=== PATIENT | male | born 1950 | race Caucasian/White ===

== ENCOUNTER 2018-11-15 12:03 | Emergency (ER) | payer OTHER ==
[2018-11-15] MEDS ORDERED: MECLIZINE HCL 12.5 MG TAB ONE (12:50)
[2018-11-15] MEDS ORDERED: ONDANSETRON 4 MG/2 ML VIAL ONE (12:50)
[2018-11-15] MEDS ORDERED: FAMOTIDINE 20 MG/2 ML VIAL IV ONE (12:51)
[2018-11-15] MEDS ORDERED: NA CHLORIDE 0.9% 500 ML ONE (12:51)
--- NOTE | 2018-11-15 12:56 | RAD REPORT ---
EXAM DESCRIPTION: CT - Head Brain Wo Cont - 11/15/2018 12:42 pm CLINICAL HISTORY: N/V;Dizziness Headache, dizziness, drowsiness. COMPARISON: No comparisons TECHNIQUE: All CT scans are performed using dose optimization technique as appropriate and may inclu de automated exposure control or mA/KV adjustment according to patient size. FINDINGS: No intracranial hemorrhage, hydrocephalus or extra-axial fluid collection.No areas of brai n edema or evidence of midline shift. Mild mucoperiosteal thickening involves the ethmoid air cells. The paranasal sinuses and mastoids oth erwise clear. The calvarium is intact. IMPRESSION: No acute intracranial abnormality.
--- NOTE | 2018-11-15 13:00 | RAD REPORT ---
EXAM DESCRIPTION: RAD - Chest Single View - 11/15/2018 12:51 pm CLINICAL HISTORY: dizziness Chest pain. COMPARISON: <Comparisons> FINDINGS: Portable technique limits examination quality. The lungs are grossly clear. The heart is normal in size. Healed left posterior rib fracture. IMPRESSION: No acute intrathoracic process suspected.
[2018-11-15 14:02] LABS: Absolute Lymphocytes (CBC) 0.6 K/uL (0.7-4.9); Absolute Monocytes 0.4 K/uL (0.1-1.3); Basophils % 0.5 % (0-1.3); Hematocrit 42.9 % (39.6-49.0); Lymphocytes % 7.8 % (15.3-44.8); MPV 9.8 fL (7.6-11.3); Monocytes % 4.9 % (3.3-12.3); RBC Red Blood Cell Count 4.28 M/uL (4.33-5.43)
[2018-11-15 14:41] LABS: Protime INR 1.02
[2018-11-15 14:56] LABS: Blood Morphology Comment NOT SEEN (NOT SEEN); Platelet Estimate ADEQ; Urine White Blood Cell Casts OK
[2018-11-15 15:19] LABS: Potassium 4.6 mmol/L (3.5-5.1); Sodium Level 140 mmol/L (136-145)
[2018-11-15 15:21] LABS: Glucose Level 116 mg/dL (74-106)
[2018-11-15 15:22] LABS: Albumin 3.7 g/dL (3.4-5.0); BUN Blood Urea Nitrogen 18 mg/dL (7-18); Bicarbonate 28 mmol/L (21-32); Magnesium 2.3 mg/dL (1.8-2.4)
[2018-11-15 15:24] LABS: Bilirubin Direct 0.2 mg/dL (0-0.2)
[2018-11-15 15:25] LABS: ALT/SGPT 24 U/L (12-78); AST/SGOT 17 U/L (15-37)
[2018-11-15 15:26] LABS: Bilirubin Total 0.8 mg/dL (0.2-1.0)
[2018-11-15 15:27] LABS: Alkaline Phosphatase 80 U/L (45-117)
[2018-11-15 15:30] LABS: NT PRO-BNP 181 pg/mL (<125); Troponin (Emerg Dept Use Only) < 0.02 ng/mL (0.0-0.045)
--- NOTE | 2018-11-15 18:13 | RAD REPORT ---
EXAM DESCRIPTION: MRI - Brain W/Wo Cont - 11/15/2018 6:01 pm CLINICAL HISTORY: dizziness Headache, drowsiness, CVA symptomology COMPARISON: MRA Head Wo Cont dated 11/15/2018 TECHNIQUE: Multi-sequence, multiplanar MR imaging of the brain was performed with contrast. FINDINGS: No intracranial hemorrhage, hydrocephalus, or extra-axial fluid collection.Minimal T2 and FLAIR hyperintensity in the periventricular region compatible with chronic microvascular ischemic sirena nges. No edema or shift of midline structures. No intracranial mass. DWI is negative for acute CVA. The midline structures are normally formed. Mild mucosal thickening involves the ethmoid air cells an d sphenoid sinuses. Post-contrast images show no abnormal enhancement to suggest tumor or infection. IMPRESSION: Negative for acute CVA or other acute intracranial process. No pathologic post-contrast enhancement suspected.
--- NOTE | 2018-11-15 18:15 | RAD REPORT ---
EXAM DESCRIPTION: MRI - MRA Head Wo Cont - 11/15/2018 6:01 pm CLINICAL HISTORY: DIZZINESS Headache, drowsiness, CVA symptomology. COMPARISON: <Comparisons> FINDINGS: 3D noncontrast [id number] MR angiography of the [place] was performed. No aneurysm, flow-limiting stenosis or vascular malformation is seen. Forward flow seen in codominant vertebral arteries. The visualized dural venous sinuses appear patent. IMPRESSION: No significant flow abnormality of the [place] is identified.
--- NOTE | 2018-11-15 18:19 | RAD REPORT ---
EXAM DESCRIPTION: MRI - MRA Neck W/Wo Cont - 11/15/2018 6:01 pm CLINICAL HISTORY: dizziness Headache, drowsiness, CVA symptomology. COMPARISON: No comparisons FINDINGS: Contrast enhance 2D [id number] MR angiography of the neck vessels was performed. A left aortic arch is noted. Normal branching of the great vessels is seen. Both common carotid arteries and subclavian artery superior widely patent. Mild irregular atheromatous narrowing noted involving both proximal internal carotid arteries. Stenos is of approximately 70% is suspected involving the left carotid bulb utilizing NASCET criteria. Steno sis of less than 50% is suspected involving the right carotid bulb utilizing NASCET criteria. Antegrade flow seen in codominant vertebral arteries. IMPRESSION: Approximately 70% stenosis suspected left carotid bulb based on NASCET criteria.
[2018-11-15] MEDS ORDERED: LISINOPRIL 20 MG TAB ONE (18:48)
[2018-11-15] MEDS ORDERED: ASPIRIN 81 MG CHEWABLE TABLET ONE (18:55)
--- NOTE | 2018-11-15 19:03 | ER ---
Nurse's Notes [facility] Name: Shane Rodriguez Age: 68 yrs Sex: Male : 1950 Arrival Date: 11/15/2018 Time: 12:07 Bed 20 Private MD: Diagnosis: Dizziness and giddiness;Non-occlussive left carotid stenosis Presentation: 11/15 12:07 Presenting complaint: EMS states: DIZZINESS WHILE SURFING. Transition of care: patient bp was not received from another setting of care. Onset of symptoms is unknown. Risk Assessment: Do you want to hurt yourself or someone else? Patient reports no desire to harm self or others. Initial Sepsis Screen: Does the patient meet any 2 criteria? No. Patient's initial sepsis screen is negative. Does the patient have a suspected source of infection? No. Patient's initial sepsis screen is negative. Care prior to arrival: None. 12:07 Method Of Arrival: EMS: [facility] bp 12:07 Acuity: MALA 3 bp Triage Assessment: 12:07 General: Appears in no apparent distress. comfortable, Behavior is calm, cooperative, bp appropriate for age. Pain: Denies pain. EENT: No deficits noted. Neuro: Level of Consciousness is awake, alert, obeys commands, Oriented to place. Cardiovascular: No deficits noted. Respiratory: Airway is patent Respiratory effort is even, unlabored, Respiratory pattern is symmetrical. GI: No signs and/or symptoms were reported involving the gastrointestinal system. : No signs and/or symptoms were reported regarding the genitourinary system. Derm: No deficits noted. Musculoskeletal: No deficits noted. Historical: - Allergies: 12:09 No Known Allergies; bp - Home Meds: 12:09 lisinopril 20 mg Oral tab 1 tab once daily [Active]; bp - PMHx: 12:09 Hypertension; bp - Immunization history:: Adult Immunizations up to date. - Social history:: Smoking status: Patient/guardian denies using tobacco. - Ebola Screening: : No symptoms or risks identified at this time. Screenin:16 Abuse screen: Denies threats or abuse. Denies injuries from another. Nutritional bp screening: No deficits noted. Tuberculosis screening: No symptoms or risk factors identified. Fall Risk None identified. Assessment: 12:07 General: SEE TRIAGE NOTE. bp 14:12 Reassessment: ALL CURRENT ORDERS COMPLETED, LAB RECOLLECT SENT. bp 15:37 Reassessment: ALL CURRENT ORDERS, RESULTS PENDING. bp 16:22 Reassessment: ALL CURRENT ORDERS COMPLETED, DISPO PENDING. bp 16:48 Reassessment: PT TO MRI. bp 17:52 Reassessment: PT RETURNED FROM MRI. bp 19:13 Reassessment: PT D/C HOME AMBULATORY WITH FAMILY, DX WITH DIZZINESS AND NON-OCCLUSIVE bp LEFT CAROTID STENOSIS. Vital Signs: 12:09 BP 138 / 68; Pulse 58; Resp 16; Temp 98; Pulse Ox 100% ; Weight 74.84 kg; Height 5 ft. bp 7 in. (170.18 cm); 13:00 BP 125 / 60; Pulse 47; Resp 16; Pulse Ox 99% ; bp 14:00 BP 135 / 66; Pulse 51; Resp 16; Pulse Ox 99% ; bp 15:36 BP 117 / 64; Pulse 53; Resp 16; Pulse Ox 100% ; bp 16:22 BP 110 / 58; Pulse 65; Resp 16; Pulse Ox 98% ; bp 17:55 BP 145 / 62; Pulse 51; Resp 16; Pulse Ox 100% ; bp 19:14 BP 148 / 71; Pulse 52; Resp 16; Temp 98; Pulse Ox 100% ; bp 12:09 Body Mass Index 25.84 (74.84 kg, 170.18 cm) bp ED Course: 12:07 Patient arrived in ED. bp 12:08 Triage completed. bp 12:09 Arm band placed on. bp 12:11 Toni Love MD is Attending Physician. sirena 12:12 [facility]. cp 12:16 Patient has correct armband on for positive identification. Bed in low position. Call bp light in reach. Side rails up X2. 12:18 Inderjit Weber, ROBY is Primary Nurse. bp 12:30 Inserted saline lock: 20 gauge in right antecubital area, using aseptic technique. bp Blood collected. 12:31 EKG done, by identification technician. reviewed by Toni GUSMAN. sm3 12:43 CT Head Brain wo Cont In Process Unspecified. EDMS 12:53 XRAY Chest (1 view) In Process Unspecified. EDMS 18:03 MRA Neck W/Wo Cont In Process Unspecified. EDMS 18:03 Brain W/Wo Cont In Process Unspecified. EDMS 18:03 MRA Head Wo Cont In Process Unspecified. EDMS 19:15 No provider procedures requiring assistance completed. IV discontinued, intact, bp bleeding controlled, No redness/swelling at site. Pressure dressing applied. Administered Medications: 12:30 Drug: Zofran 4 mg Route: IVP; Site: right antecubital; bp 14:11 Follow up: Response: No adverse reaction bp 12:30 Drug: Pepcid 20 mg Route: IVP; Site: right antecubital; bp 14:11 Follow up: Response: No adverse reaction bp 12:30 Drug: Meclizine 25 mg Route: PO; bp 14:11 Follow up: Response: No adverse reaction bp 12:30 Drug: NS 0.9% 500 ml Route: IV; Rate: 500 ml/hr; Site: right antecubital; bp 19:16 Follow up: IV Status: Completed infusion; IV Intake: 500ml bp 18:36 Drug: Lisinopril 20 mg Route: PO; bp 18:37 Follow up: Response: No adverse reaction bp 18:37 Drug: Aspirin 81 mg Route: PO; bp 18:38 Follow up: Response: No adverse reaction bp Point of Care Testing: Blood Glucose: 12:09 Blood Glucose: 132 mg/dL; bp Ranges: Intake: 19:16 IV: 500ml; Total: 500ml. bp Outcome: 19:02 Discharge ordered by . cp 19:15 Discharged to home ambulatory. bp 19:15 Condition: stable 19:15 Discharge instructions given to patient, Instructed on discharge instructions, follow up and referral plans. medication usage, Demonstrated understanding of instructions, follow-up care, medications, Prescriptions given X 2. 19:17 Patient left the ED. bp Signatures: Dispatcher [employer] EDToni Lundberg MD MD cha Page, Corey, PA PA Inderjit Gama, RN RN bp Jeanne Conklin 3
--- NOTE | 2018-11-15 19:03 | EDPHYS ---
Physician Documentation [facility] Name: Shane Rodriguez Age: 68 yrs Sex: Male : 1950 Arrival Date: 11/15/2018 Time: 12:07 Bed 20 Private MD: ED Physician Toni Love HPI: 11/15 12:20 This 68 yrs old Male presents to ER via EMS with complaints of Dizziness. cp 12:20 The patient presents with dizziness. cp 12:20 Onset: The symptoms/episode began/occurred suddenly, this morning. cp 12:20 Context: occurred while the patient was surfing. just prior to the episode the patient cp experienced no apparent symptoms. Associated signs and symptoms: Pertinent positives: nausea, vomiting, Pertinent negatives: abdominal pain, chest pain, head injury, headache, syncope. Severity of symptoms: in the emergency department the symptoms are unchanged despite EMS interventions. Patient's baseline: Neuro: alert and fully oriented, Motor: no deficits, Ambulation: walks without assistance, Speech: normal. Historical: - Allergies: 12:09 No Known Allergies; bp - Home Meds: 12:09 lisinopril 20 mg Oral tab 1 tab once daily [Active]; bp - PMHx: 12:09 Hypertension; bp - Immunization history:: Adult Immunizations up to date. - Social history:: Smoking status: Patient/guardian denies using tobacco. - Ebola Screening: : No symptoms or risks identified at this time. ROS: 12:28 Constitutional: Negative for body aches, chills, fever, poor PO intake. cp 12:28 Eyes: Negative for injury, pain, redness, and discharge. cp 12:28 ENT: Negative for drainage from ear(s), ear pain, sore throat, difficulty swallowing, difficulty handling secretions. 12:28 Cardiovascular: Negative for chest pain, edema, palpitations. 12:28 Respiratory: Negative for cough, shortness of breath, wheezing. 12:28 Abdomen/GI: Positive for nausea and vomiting, Negative for abdominal pain, diarrhea, constipation, black/tarry stool, rectal bleeding. 12:28 Neuro: Positive for dizziness, Negative for altered mental status, headache, syncope, weakness. 12:28 All other systems are negative. Exam: 12:33 Constitutional: The patient appears in no acute distress, alert, awake, cp non-diaphoretic, non-toxic, well developed, well nourished. 12:33 Head/Face: Normocephalic, atraumatic. cp 12:33 Eyes: Periorbital structures: appear normal, Pupils: equal, round, and reactive to light and accomodation, Extraocular movements: intact throughout, Conjunctiva: normal, no exudate, no injection, Sclera: no appreciated abnormality, Lids and lashes: appear normal, bilaterally, Nystagmus: nystagmus with fast component noted, bilaterally. 12:33 ENT: External ear(s): are unremarkable, Ear canal(s): are normal, clear, TM's: dullness, bilaterally, Nose: is normal, Mouth: is normal, Posterior pharynx: is normal, airway is patent, no erythema, no exudate, Voice: is normal. 12:33 Neck: ROM/movement: is normal, is supple, without pain, no range of motions limitations, no meningismus, no nuchal rigidity. 12:33 Chest/axilla: Inspection: normal, Palpation: is normal, no crepitus, no tenderness. 12:33 Cardiovascular: Rate: bradycardic, actual rate is 58 bpm, Rhythm: regular, Heart sounds: murmur, not appreciated, Edema: is not appreciated, JVD: is not appreciated. 12:33 Respiratory: the patient does not display signs of respiratory distress, Respirations: normal, no use of accessory muscles, no retractions, no splinting, no tachypnea, labored breathing, is not present, Breath sounds: are clear throughout, no decreased breath sounds, no stridor, no wheezing. 12:33 Abdomen/GI: Inspection: abdomen appears normal, Palpation: abdomen is soft and non-tender, in all quadrants. 12:33 Back: pain, is absent, ROM is normal. 12:33 Skin: cellulitis, is not appreciated, no rash present. 12:33 Neuro: Orientation: to person, place \T\ time. Mentation: is normal, Cerebellar function: is grossly normal, Motor: moves all fours, strength is normal, Sensation: is normal. 12:35 ECG was reviewed by the Attending Physician. cp Vital Signs: 12:09 BP 138 / 68; Pulse 58; Resp 16; Temp 98; Pulse Ox 100% ; Weight 74.84 kg; Height 5 ft. bp 7 in. (170.18 cm); 13:00 BP 125 / 60; Pulse 47; Resp 16; Pulse Ox 99% ; bp 14:00 BP 135 / 66; Pulse 51; Resp 16; Pulse Ox 99% ; bp 15:36 BP 117 / 64; Pulse 53; Resp 16; Pulse Ox 100% ; bp 16:22 BP 110 / 58; Pulse 65; Resp 16; Pulse Ox 98% ; bp 17:55 BP 145 / 62; Pulse 51; Resp 16; Pulse Ox 100% ; bp 19:14 BP 148 / 71; Pulse 52; Resp 16; Temp 98; Pulse Ox 100% ; bp 12:09 Body Mass Index 25.84 (74.84 kg, 170.18 cm) bp MDM: 12:11 Patient medically screened. sirena 19:00 Data reviewed: vital signs, nurses notes, lab test result(s), EKG, radiologic studies, cp CT scan, MRI, plain films, and as a result, I will discharge patient. 19:00 Differential diagnosis: cardiac arrhythmia, CVA, generalized weakness, GI bleed, cp hypovolemia, idiopathic dizziness. Test interpretation: by ED physician or midlevel provider: ECG, plain radiologic studies. Counseling: I had a detailed discussion with the patient and/or guardian regarding: the historical points, exam findings, and any diagnostic results supporting the discharge/admit diagnosis, lab results, radiology results, to return to the emergency department if symptoms worsen or persist or if there are any questions or concerns that arise at home. Response to treatment: the patient's symptoms have markedly improved after treatment, and as a result, I will discharge patient. 19:00 ED course: VSS. Patient reports symptoms markedly improved after IV fluids and meds. cp Will discharge to home for continued monitoring. 11/15 12:14 Order name: Basic Metabolic Panel; Complete Time: 16:23 11/15 16:23 Interpretation: Normal except: GLUC 116; CA 8.4; GFR 78. 11/15 12:14 Order name: CBC with Diff; Complete Time: 16:23 11/15 16:24 Interpretation: Normal except: RBC 4.28; MCV 100.2; ARCHANA% 85.8; LYM% 7.8; LYMA 0.6. 11/15 12:14 Order name: LFT's; Complete Time: 16:23 cp /13 12:14 Order name: Magnesium; Complete Time: 16:23 cp /13 12:14 Order name: NT PRO-BNP; Complete Time: 16:23 cp / 12:14 Order name: PT-INR; Complete Time: 16:23 cp /13 12:14 Order name: Troponin (emerg Dept Use Only); Complete Time: 16:23 cp 11/15 12:14 Order name: XRAY Chest (1 view); Complete Time: 13:06 cp 11/15 12:14 Order name: CT Head Brain wo Cont; Complete Time: 13:06 cp 11/15 13:07 Interpretation: Report reviewed. cp 11/15 14:14 Order name: CBC Smear Scan; Complete Time: 16:23 EDMS 11/15 17:58 Order name: MRA Neck W/Wo Cont; Complete Time: 18:31 EDMS 11/15 17:58 Order name: Brain W/Wo Cont; Complete Time: 18:31 EDMS 13 12:14 Order name: EKG; Complete Time: 12:16 cp 11/15 12:14 Order name: Cardiac monitoring; Complete Time: 13:12 cp 13 12:14 Order name: EKG - Nurse/Tech; Complete Time: 13:12 cp 11/15 12:14 Order name: IV Saline Lock; Complete Time: 13:12 cp 11/15 12:14 Order name: Labs collected and sent; Complete Time: 13:12 cp 13 12:14 Order name: O2 Per Protocol; Complete Time: 13:12 cp 13 12:14 Order name: O2 Sat Monitoring; Complete Time: 13:12 cp 11/15 13:40 Order name: Misc. Order: ambulate patient; Complete Time: 13:53 cp 13 13:52 Order name: Labs - recollect needed; Complete Time: 14:11 ms 11/15 18:02 Order name: MRA Head Wo Cont; Complete Time: 18:31 EDMS EC:35 Rate is 50 beats/min. Rhythm is regular. [place] interval is prolonged at 226 msec. QRS cp interval is normal. QT interval is normal. T waves are Inverted in lead III. Interpreted by me. Reviewed by me. Administered Medications: 12:30 Drug: Zofran 4 mg Route: IVP; Site: right antecubital; bp 14:11 Follow up: Response: No adverse reaction bp 12:30 Drug: Pepcid 20 mg Route: IVP; Site: right antecubital; bp 14:11 Follow up: Response: No adverse reaction bp 12:30 Drug: Meclizine 25 mg Route: PO; bp 14:11 Follow up: Response: No adverse reaction bp 12:30 Drug: NS 0.9% 500 ml Route: IV; Rate: 500 ml/hr; Site: right antecubital; bp 19:16 Follow up: IV Status: Completed infusion; IV Intake: 500ml bp 18:36 Drug: Lisinopril 20 mg Route: PO; bp 18:37 Follow up: Response: No adverse reaction bp 18:37 Drug: Aspirin 81 mg Route: PO; bp 18:38 Follow up: Response: No adverse reaction bp Point of Care Testing: Blood Glucose: 12:09 Blood Glucose: 132 mg/dL; bp Ranges: Critical Glucose Levels:Adult <50 mg/dl or >400 mg/dl <40 mg/dl or >180 mg/dl Disposition: 11/15/18 19:02 Discharged to Home. Impression: Dizziness and giddiness, Non-occlussive left carotid stenosis. - Condition is Stable. - Discharge Instructions: Dizziness, Aspirin and Your Heart. - Prescriptions for Meclizine 25 mg Oral Tablet - take 1 tablet by ORAL route every 8 hours As needed; 30 tablet. Zofran 4 mg Oral Tablet - take 1 tablet by ORAL route every 12 hours As needed; 20 tablet. - Medication Reconciliation Form, Thank You Letter, Antibiotic Education, Prescription Opioid Use form. - Follow up: Private Physician; When: 2 - 3 days; Reason: Recheck today's complaints. - Problem is new. - Symptoms have improved. - Notes: take baby aspirin daily Addendum: 11/19/2018 09:57 Co-signature as Attending Physician, Toni Love MD I agree with the assessment and c chapin plan of care. Signatures: Dispatcher [employer] Toni Russell MD MD cha Solis, Maria ms Toni Cortez PA PA Inderjit Gama, RN RN bp Corrections: (The following items were deleted from the chart) 11/15 16:24 16:24 Normal except: RBC 4.28; MCV 100.2; ARCHANA% 85.8; LYM% 7.8. cp cp 18:02 13:26 MR STROKE PROTOCOL+MRI.RAD.BRZ ordered. EDMS EDMS 19:03 19:02 11/15/2018 19:02 Discharged to Home. Impression: Dizziness and giddiness. cp Condition is Stable. Forms are Medication Reconciliation Form, Thank You Letter, Antibiotic Education, Prescription Opioid Use. Follow up: Private Physician; When: 2 - 3 days; Reason: Recheck today's complaints. Problem is new. Symptoms have improved. cp 19:17 19:03 11/15/2018 19:02 Discharged to Home. Impression: Dizziness and giddiness; bp Non-occlussive left carotid stenosis. Condition is Stable. Discharge Instructions: Dizziness. Prescriptions for Meclizine 25 mg Oral Tablet - take 1 tablet by ORAL route every 8 hours As needed; 30 tablet, Zofran 4 mg Oral Tablet - take 1 tablet by ORAL route every 12 hours As needed; 20 tablet. and Forms are Medication Reconciliation Form, Thank You Letter, Antibiotic Education, Prescription Opioid Use. Follow up: Private Physician; When: 2 - 3 days; Reason: Recheck today's complaints. Problem is new. Symptoms have improved. cp
--- NOTE | 2018-11-16 08:07 | EKG ---
Test Date: 2018-11-15 Test Time: 12:26:03 Licensing Coordinator: ADÁN MEASUREMENT RESULTS: Intervals: Rate: 50 UT: 226 QRSD: 86 QT: 454 QTc: 413 [place]: P: 44 UT: 226 QRS: 15 T: 6 INTERPRETIVE STATEMENTS: Sinus bradycardia with 1st degree AV block with occasional premature atrial complexes with aberrancy Otherwise normal ECG No previous ECG available for comparison Electronically Signed On 11-16-18 08:05:40 CDT by Carlyle Jolly
== END 2018-11-15 19:17 | disposition home or self-care (01) ==
LOC: ER 12:03
DX: R42 Dizziness and giddiness (principal); I65.22 Occlusion and stenosis of left carotid artery; I10 Essential (primary) hypertension
CPT/HCPCS: 96361; 93005; 85025; 80048; 36415; 83735; 85610; 80076; 84484; 83880; 70450; 71045; 70553; 70544; 70549; 96375; 96374; 99284; A9577; J2405

== ENCOUNTER 2019-11-04 19:20 | Emergency (ER) | payer OTHER ==
--- NOTE | 2019-11-04 19:47 | RAD REPORT ---
EXAM DESCRIPTION: CT - Head Brain Wo Cont - 11/04/2019 7:37 pm CLINICAL HISTORY: fall Fall, head injury and trauma COMPARISON: Head Brain Wo Cont dated 11/15/2018; Brain W/Wo Cont dated 11/15/2018 TECHNIQUE: All CT scans are performed using dose optimization technique as appropriate and may inclu de automated exposure control or mA/KV adjustment according to patient size. FINDINGS: No intracranial hemorrhage, hydrocephalus or extra-axial fluid collection.No areas of brai n edema or evidence of midline shift. Mild paranasal sinus thickening is present. The calvarium is intact. Small right-sided scalp hematoma . IMPRESSION: No acute intracranial abnormality.
--- OUTSIDE RECORDS SUMMARY | 2019-11-04 19:52 | XMS REPORT | Summary of Care ---
:1950 Author Organization [facility] Address [address] [place] [address] Care Team Providers Name Role Phone Pcp, Does Not Have A Unavailable MD Araseli Primary Care Provider Reason for Visit Reason Comments Rx Concern/Question Encounter Details Date Type Department Care Team Description 09/05/2019 Telephone [facility] Pediatric Emory Marx MD Rx Concern/Question and Adult [facility]- [facility] Jerry Joss [address] 146 [facility] [place], [place] [address] [address] [place] [address] [phone] Allergies Active Allergy Reactions Severity Noted Date Comments Fluticasone Unknown - See comments 09/11/2015 Agita maribel nose more than helping documented as of this encounter (statuses as of 09/16/2019) Medications Medication Sig Dispensed Refills Start Date End Date Status Ascorbic Acid Take by mouth. 0 Active (VITAMIN C) 500 mg CpSR cholecalciferol, Take by mouth. 0 Active vitamin D3, (VITAMIN D3 ORAL) MAGNESIUM ORAL Take by mouth. 0 Active COLLAGEN MISC 0 Active albuterol (PROAIR Inhale 2 Puffs 8.5 g 1 08/29/2018 Active HFA) 90 mcg/actuation every 4 (four) inhalerIndications: hours as needed for Mild intermittent Wheezing or asthma, unspecified Shortness of whether complicated Breath. SHINGRIX, PF, RECONSTITUTE AND 0 09/07/2018 Active injection ADMINISTER 0.5ML IM turmeric (CURCUMIN 0 A ctive MISC) glucosamine/msm/chond Take by mouth. 0 Active roitin A (GLUCOSAMINE [id number] ORAL) multivitamin tablet Take 1 tablet by 0 Active mouth daily. triamcinolone 55 mcg Use 2 Sprays in 1 Bottle 3 05/21/2019 Active nasal inhaler each nostril 2 (two) times daily. lisinopril 20 mg Take 1 tablet by 90 tablet 3 05/22/2019 Active tabletIndications: mouth every Essential morning. hypertension, benign lisinopril 10 mg Take 1 tablet by 90 tablet 3 05/22/2019 Active tabletIndications: mouth every Essential evening. In the hypertension, benign evening Miscellaneous Medical I10 - Dispense 1 Kit 0 05/22/2019 Active Supply blood pressure cuff KitIndications: (any brand), take Essential BP at home BID hypertension, benign Azelastine 0.15 % Use 1 [place] in each 30 mL 5 07/16/2019 Active (205.5 mcg) nasal nostril 2 (two) sprayIndications: times daily. Nasal polyps, Disturbance of smell and taste documented as of this encounter (statuses as of 09/16/2019) Active Problems Problem Noted Date Need for pneumococcal vaccination 05/22/2019 Cortical age-related cataract of right eye 05/22/2019 Need for hepatitis C screening test 05/22/2019 Need for influenza vaccination 04/03/2019 Bilateral hearing loss, unspecified hearing loss type 04/03/2019 Presbycusis of both ears 04/03/2019 Screening for HIV (human immunodeficiency virus) 04/03 Chronic midline low back pain without sciatica 019 Senile osteoporosis 04/03/2019 Polyp, ear middle, bilateral 04/03/2019 Pain of left hip joint 04/03/2019 Overexertion and strenuous movements, initial encounte r 08/19/2016 Essential hypertension, benign 08/19/2016 Pure hypercholesterolemia 08/19/2016 documented as of this encounter (statuses as of 09/16/2019) Resolved Problems Problem Noted Date Resolved Date Mixed hyperlipidemia 05/22/2019 05/22/2019 documented as of this encounter (statuses as of 09/16/2019) Immunizations Name Administration Dates Next Due Influenza High Dose 04/03/2019 Influenza Virus Vaccine 07/19/2016 Pneumococcal 13 Conjugate, PCV13 (Prevnar 13) 05/22/2019 Td 09/07/2018 Zoster Vaccine Recombinant 10/03/2018, 09/07/2018 documented as of this encounter Social History Tobacco Use Types Packs/Day Years Used Date Never Smoker Smokeless Tobacco: Never Used Alcohol Use Drinks/Week oz/Week Comments No 0 Standard drinks or equivalent 0.0 Sex Assigned at Date Recorded Not on file Job Start Date Occupation Industry Not on file Not on file Not on file Travel History Travel Start Travel End No recent travel history available. documented as of this encounter Last Filed Vital Signs Not on filedocumented in this encounter Plan of Treatment Date Type Specialty Care Team Description 01/23/2020 Office Visit Family Medicine Emory Marx MD [address] [place] [address] Dr Coreas [address] [place] [address]75 15 [phone] Health Maintenance Due Date Last Done Comments DTaP,Tdap,and Td Vaccines (1 1959 09/07/2018 - Tdap) Medicare Wellness Visit 11/01/2019 10/31/2018 COLONOSCOPY 02/27/2020 Postponed from 1 07/20/1997 (Refused) PNEUMOCOCCAL VACCINES 65+ (2 05/22/2020 05/22/2019 of 2 - PPSV23) Zoster Recombinant Vaccine Completed 10/03/2018, (SHINGRIX) 09/07/2018 INFLUENZA VACCINE Completed 04/03/2019, 07/19/2016 HEPATITIS C (HCV) SCREEN Completed 05/22/2019 documented as of this encounter Results Not on filedocumented in this encounter Insurance Payer Benefit Plan / Subscriber ID Effective Phone Address T ype [facility] [id number] 2018-Prese Medic are Adv HEALTHCARE - HEALTHCARE DUAL nt H MO MANAGED COMPLETE O MEDICARE [place] xxxxxxxxx 2016-Prese Medicaid HEALTHCARE COMM PLUS nt PLAN - MANAGED MEDICAID documented as of this encounter
--- OUTSIDE RECORDS SUMMARY | 2019-11-04 19:52 | XMS REPORT | Continuity of Care Document ---
:1950 Author Organization [facility] t Address [address] [place] [address] Care Team Providers Name Role Phone Emory Marx MD Attending Clinician Doctor Unassigned, [place] Attending Clinician Unavailable Problems This patient has no known problems. Allergies, Adverse Reactions, Alerts This patient has no known allergies or adverse reactions. Medications This patient has no known medications. Procedures This patient has no known procedures. Encounters Start End Encounter Admission Attending Care Care Encounter Source Date/Time Date/Time Type Type Clinicians Facility Department ID 2019-09-05 2019-09-05 Telephone Araseli [facility] [id number] 00:00:00 00:00:00 Emory Jerry [id number] [place] [id number] [facility] [phone] nal 044 Building 2019-08-22 2019-08-22 Orders Doctor MCCLAIN [id number] 00:00:00 00:00:00 [place] [id number] [place] [facility] [id number] 2019-07-25 2019-07-25 Office Araseli [facility] [id number] 07:00:17 09:10:20 Visit Emory Jerry [id number] [place] [id number] [facility] [id number] nal 044 Building Results This patient has no known results.
--- OUTSIDE RECORDS SUMMARY | 2019-11-04 19:53 | XMS REPORT | Summary of Care ---
:1950 Author Organization [facility] - Health Address [address] [place] [id number] Care Team Providers Name Role Phone Pcp, Does Not Have A Unavailable MD Araseli Primary Care Provider Encounter Details Date Type Department Care Team Description 08/22/2019 Orders Only [facility] Doctor Unassigned, [address] [place] [address] [address] [place] [address] Allergies Active Allergy Reactions Severity Noted Date Comments Fluticasone Unknown - See comments 09/11/2015 Agita maribel nose more than helping documented as of this encounter (statuses as of 10/30/2019) Medications Medication Sig Dispensed Refills Start Date [...] by mouth. 0 Active roitin A (GLUCOSAMINE [id number] ORAL) multivitamin tablet Take 1 tablet by [...] hypertension, benign Azelastine 0.15 % Use 1 [place] in each 30 mL 5 07/16/2019 Active (205.5 mcg) nasal nostril 2 (two) sprayIndications: times daily. Nasal polyps, Disturbance of smell and taste documented as of this encounter (statuses as of 10/30/2019) Active Problems Problem Noted Date Need for [...] as of this encounter (statuses as of 10/30/2019) Resolved Problems Problem Noted Date Resolved Date Mixed hyperlipidemia 05/22/2019 05/22/2019 documented as of this encounter (statuses as of 10/30/2019) Immunizations Name Administration Dates Next Due Influenza [...] Office Visit Family Medicine Emory Marx MD [address] [place] [address] Dr Coreas [address] [place] [address], [place] [address] [phone] Health Maintenance Due Date Last Done Comments DTaP,Tdap,and Td Vaccines (1 1959 09/07/2018 - Tdap) Medicare Wellness Visit 11/01/2019 10/31/2018 COLONOSCOPY 02/27/2020 Postponed from 1 07/20/1997 (Refused) PNEUMOCOCCAL VACCINES 65+ (2 05/22/2020 05/22/2019 of 2 - PPSV23) Zoster Recombinant Vaccine Completed 10/03/2018, (SHINGRIX) 09/07/2018 INFLUENZA VACCINE Completed 04/03/2019, 07/19/2016 HEPATITIS C (HCV) SCREEN Completed 05/22/2019 documented as of this encounter Procedures Procedure Name Priority Date/Time Associated Diagnosis Comme nts INSURANCE CORRESPONDENCE Routine 08/22/2019 12:01 AM CDT documented in this encounter Results Not on filedocumented in this encounter Insurance Payer Benefit Plan / Subscriber ID Effective Phone Address T e [facility] [id number] 2018-Prese Medic are Adv HEALTHCARE - HEALTHCARE DUAL nt H [place] MANAGED COMPLETE O MEDICARE [place] [place] xxxxxxxxx 2016-Prese Medicaid HEALTHCARE COMM PLUS nt PLAN - MANAGED MEDICAID documented as of this encounter
[2019-11-04] MEDS ORDERED: LIDOCAINE 1% MPF 5 ML VIAL ONE (20:35)
[2019-11-04 20:36] LABS: Basophils % 1.1 % (0-1.3); Hematocrit 41.4 % (39.6-49.0); Lymphocytes % 17.7 % (15.3-44.8); MPV 8.2 fL (7.6-11.3); RBC Red Blood Cell Count 4.13 M/uL (4.33-5.43)
[2019-11-04 20:41] LABS: Potassium 3.7 mmol/L (3.5-5.1)
--- NOTE | 2019-11-04 20:52 | EDPHYS ---
Physician Documentation [facility] Name: Shane Rodriguez Age: 69 yrs Sex: Male : 1950 Arrival Date: 11/04/2019 Time: 19:25 Bed 2 Private MD: ED Physician Boyd Bryson HPI: 11/03 20:44 This 69 yrs old Male presents to ER via EMS with unknown complaint. pkl 20:44 The patient or guardian reports a laceration, 2.5 cm(s). The complaints affect the pkl right parietal scalp. Onset: The symptoms/episode began/occurred just prior to arrival. Associated signs and symptoms: Loss of consciousness: This patient experience a loss of consciousness, that was brief. Historical: - Allergies: 19:29 No Known Allergies; rv - Home Meds: 19:29 lisinopril 20 mg Oral tab 1 tab once daily [Active]; rv - PMHx: 19:29 Hypertension; rv - PSHx: 19:29 None; rv - Immunization history:: Adult Immunizations up to date, Last tetanus immunization: up to date. - Social history:: Smoking status: Patient denies any tobacco usage or history of. ROS: 20:44 Eyes: Negative for injury, pain, redness, and discharge, ENT: Negative for injury, pkl pain, and discharge, Neck: Negative for injury, pain, and swelling, Cardiovascular: Negative for chest pain, palpitations, and edema, Respiratory: Negative for shortness of breath, cough, wheezing, and pleuritic chest pain, Abdomen/GI: Negative for abdominal pain, nausea, vomiting, diarrhea, and constipation, Back: Negative for injury and pain, : Negative for injury, bleeding, discharge, and swelling, MS/Extremity: Negative for injury and deformity. 20:44 Skin: Positive for laceration(s), of the right parietal scalp. 20:44 Neuro: Positive for loss of consciousness. Exam: 20:44 Eyes: Pupils equal round and reactive to light, extra-ocular motions intact. Lids and pkl lashes normal. Conjunctiva and sclera are non-icteric and not injected. Cornea within normal limits. Periorbital areas with no swelling, redness, or edema. 20:44 Head/face: Noted is a laceration(s), that is linear, 2.5 cm(s). 20:44 ENT: Exam is negative for acute changes. 20:44 Neck: Exam negative for obvious evidence of injury or deformity, nuchal rigidity. 20:44 Chest/axilla: Exam negative for acute changes. 20:44 Cardiovascular: Rate: normal, Rhythm: regular. 20:44 Respiratory: the patient does not display signs of respiratory distress. 20:44 Abdomen/GI: Exam negative for acute changes. 20:44 Back: Exam negative for acute changes. 20:44 : Exam negative for acute changes. 20:44 Musculoskeletal/extremity: Exam is negative for acute changes. 20:44 Neuro: Orientation: is normal, Mentation: is normal, Cranial nerves: grossly normal, Motor: is normal. Vital Signs: 19:25 BP 134 / 89; Pulse 76; Resp 18; Temp 98.5; Pulse Ox 100% on R/A; rv [place] Coma Score: 20:44 Eye Response: spontaneous(4). Verbal Response: oriented(5). Motor Response: obeys pkl commands(6). Total: 15. MDM: 19:30 Patient medically screened. pkl 20:44 Data reviewed: vital signs, nurses notes, lab test result(s), radiologic studies, CT pkl scan. ED course: Patient refused sutures or ronaldo for the laceration on the scalp. 20:50 ED course: Patient also refused oral antibiotic. pkl 11/03 19:31 Order name: CBC with Diff; Complete Time: 20:43 pkl 11/03 19:31 Order name: Chem 7; Complete Time: 20:43 pkl 11/03 19:31 Order name: CT Head Brain wo Cont pkl 11/03 19:31 Order name: ETOH Level; Complete Time: 21:11 pkl Administered Medications: No medications were administered Disposition: 11/04/19 20:52 Discharged to Home. Impression: Head injury. Laceration scalp. - Condition is Stable. - Medication Reconciliation Form, Thank You Letter, Antibiotic Education, Prescription Opioid Use form. - Follow up: Private Physician; When: 2 - 3 days; Reason: Re-evaluation by your physician. - Problem is new. - Symptoms have improved. Signatures: Dispatcher [employer] EDMS Boyd Bryson MD MD pkl Juan Carlos Romero RN RN rv Corrections: (The following items were deleted from the chart) 21:51 20:52 11/04/2019 20:52 Discharged to Home. Impression: Head injury. Laceration scalp. rv Condition is Stable. Forms are Medication Reconciliation Form, Thank You Letter, Antibiotic Education, Prescription Opioid Use. Follow up: Private Physician; When: 2 - 3 days; Reason: Re-evaluation by your physician. Problem is new. Symptoms have improved. pkl
--- NOTE | 2019-11-04 20:52 | ER ---
Nurse's Notes [facility] Name: Shane Rodriguez Age: 69 yrs Sex: Male : 1950 Arrival Date: 11/04/2019 Time: 19:25 Bed 2 Private MD: Diagnosis: Head injury. Laceration scalp Presentation: 11/03 19:25 Chief complaint: EMS states: PATIENT APPEARS TO BE LETHARGIC UPON ASSESSMENT. ADMITTED rv TO HAVE [employer]. NOTICED A LACERATION ON THE RIGHT SIDE OF THE HEAD WHICH RESULTED FROM FALLING. PATIENT TRIPPED AND FELL HITTING HIS HEAD. DENIES ANY PAIN OTHER THAN THE HEAD. NO NAUSEA AND VOMITING. Coronavirus screen: Proceed with normal triage. Ebola Screen: No symptoms or risks identified at this time. Initial Sepsis Screen: Does the patient meet any 2 criteria? No. Patient's initial sepsis screen is negative. Does the patient have a suspected source of infection? No. Patient's initial sepsis screen is negative. Risk Assessment: Do you want to hurt yourself or someone else? Patient reports no desire to harm self or others. Onset of symptoms was November 04, 2019 at 18:00. 19:25 Method Of Arrival: EMS: [facility] rv 19:25 Acuity: MALA 2 rv Triage Assessment: 19:29 General: Appears unkempt, Behavior is calm, cooperative, Smells of alcohol. Pain: rv Complains of pain in HEAD. EENT: Ear canal. Neuro: Level of Consciousness is lethargic, Oriented to person, place, time, situation. Neuro: Moves all extremities. Full function Pupils are PERRLA. Cardiovascular: Patient's skin is warm and dry. Respiratory: Airway is patent Respiratory effort is even, unlabored, Respiratory pattern is regular. Derm: Skin is intact. Musculoskeletal: Range of motion: intact in all extremities. Injury Description: Laceration sustained to HEAD, RIGHT SIDE is clean, was sustained 30-60 minutes ago. a small amount of bleeding noted at this time. Historical: - Allergies: 19:29 No Known Allergies; rv - Home Meds: : lisinopril 20 mg Oral tab 1 tab once daily [Active]; rv - PMHx: 19: Hypertension; rv - PSHx: 19:29 None; rv - Immunization history:: Adult Immunizations up to date, Last tetanus immunization: up to date. - Social history:: Smoking status: Patient denies any tobacco usage or history of. Screenin:33 Abuse screen: Denies threats or abuse. Denies injuries from another. Nutritional rv screening: No deficits noted. Tuberculosis screening: No symptoms or risk factors identified. Fall Risk None identified. Assessment: 20:36 General: Behavior is uncooperative. Pain: Denies pain. Neuro: Level of Consciousness is rv awake, confused, Oriented to person. 20:46 Reassessment: REFUSED SUTURING PROCEDURE. General: Behavior is uncooperative. rv 21:50 Reassessment: patient left without the discharge instructions. rv Vital Signs: 19:25 BP 134 / 89; Pulse 76; Resp 18; Temp 98.5; Pulse Ox 100% on R/A; rv [place] Coma Score: 20:44 Eye Response: spontaneous(4). Verbal Response: oriented(5). Motor Response: obeys pkl commands(6). Total: 15. ED Course: 19:25 Patient arrived in ED. rv 19:28 Triage completed. rv 19:30 Boyd Bryson MD is Attending Physician. pkl 19:32 Arm band placed on Patient placed in the treatment room, on a stretcher, Patient rv notified of wait time. 19:33 Patient has correct armband on for positive identification. case monitor on. Pulse rv ox on. NIBP on. 19:39 CT Head Brain wo Cont In Process Unspecified. EDMS 20:36 Juan Carlos Romero, RN is Primary Nurse. rv 20:46 Assist provider with laceration repair PATIENT REFUSED SUTURING, STACI AND/OR rv ANTIBIOTICS/MEDICATIONS. STERI STRIPS APPLIED TO THE WOUND AFTER CLEANING. Patient did not have IV access during this emergency room visit. Administered Medications: No medications were administered Outcome: 20:52 Discharge ordered by . pkhamida 21:50 Discharged to home patient left prior to instructions. rv 21:50 Condition: stable 21:50 Instructed on patient left without instructions. 21:51 Patient left the ED. rv Signatures: Dispatcher [employer] EDBoyd German MD MD pkl Vicente, Ronaldo, RN RN rv
[2019-11-04 21:56] VITALS: BP 134/89; TEMP 98.5; O2SAT 100
== END 2019-11-04 21:51 | disposition home or self-care (01) ==
LOC: ER 19:20
DX: S01.01XA Laceration without foreign body of scalp, initial encounter (principal); I10 Essential (primary) hypertension; W01.10XA Fall on same level from slipping, tripping and stumbling with subsequent striking against unspecified object, initial encounter; Y93.9 Activity, unspecified; Y92.9 Unspecified place or not applicable
CPT/HCPCS: 36415; 70450; 80048; 80320; 85025; 99284